=== PATIENT | female | born 1945 | race Caucasian/White ===

== ENCOUNTER → 2021-03-16 11:45 | Outpatient (CLI) | payer MEDICARE, OTHER, SELFPAY ==
[2021-03-16 19:22] LABS: Add Manual Diff / Slide Review NO; Basophils Absolute Auto 0 /uL (0-100); Basophils Percent Auto 0.5 % (0-2); Eosinophils Absolute Auto 100 /uL (0-450); Eosinophils Percent Auto 1.4 % (2-4); Hematocrit 39.4 % (36-46); Hemoglobin 12.9 g/dL (12.0-16.0); Lymphocytes Absolute Auto 1400 /uL (1100-4500); Lymphocytes Percent Auto 20.5 % (25-40); Mean Corpuscular HGB Conc 32.7 % (30-36); Mean Corpuscular Hemoglobin 31.8 PG (26-34); Mean Corpuscular Volume 97.2 fL (80-100); Monocytes Absolute Auto 900 /uL (0-900); Monocytes Percent Auto 13.6 % (3-14); Neutrophils Absolute Auto 4400 /uL (1500-7000); Platelet Count 250 X10^3/uL (150-400); Red Blood Cell Count 4.05 X10^6/uL (4.0-5.2); Red Cell Distribution Width 12.8 % (11.6-14.8); White Blood Cell Count 6.9 X10^3/uL (4.5-11.0)
[2021-03-16 19:42] LABS: Alanine Aminotransferase 26 IU/L (<35); Albumin 4.1 g/dL (3.5-5.0); Albumin Globulin Ratio 1.6 (1.0-2.8); Alkaline Phosphatase 61 U/L (38-126); Aspartate Aminotransferase 39 IU/L (14-36); Bilirubin Total 0.4 mg/dL (0.2-1.3); Blood Urea Nitrogen 21 mg/dL (7-17); Calcium 9.5 mg/dL (8.4-10.2); Carbon Dioxide 34 mmol/L (22-32); Chloride 102 mmol/L (98-107); Estimated Glomerular Filt Rate > 60.0 mL/min (>60); Globulin 2.6 g/dL (1.7-4.1); Glucose 60 mg/dL (80-110); HEMOLYSIS 19 (0-50); Magnesium 2.1 mg/dL (1.6-2.3); Potassium 4.2 mmol/L (3.4-5.1); Sodium 141 mmol/L (137-145); Total Protein 6.7 g/dL (6.3-8.2)
[2021-03-16 20:02] LABS: TSH w/ Reflex to FT4 1.53 uIU/mL (0.47-4.68)
[2021-03-16 20:35] LABS: Folate > 20.0 ng/mL (2.76-20.0); Vitamin B12 727 pg/mL (239-931)
== END ==
PROVIDERS: PCP Obstetrics & Gynecology; Referring Provider Nurse Practitioner Family; Visit Provider Nurse Practitioner Family
DX: K22.4 Dyskinesia of esophagus (principal); K59.00 Constipation, unspecified; K21.9 Gastro-esophageal reflux disease without esophagitis; E53.8 Deficiency of other specified B group vitamins
CPT/HCPCS: 80053; 82248; 82607; 82746; 83735; 84443; 85025

== ENCOUNTER → 2021-12-18 12:19 | Outpatient (CLI) | payer MEDICARE, OTHER, SELFPAY | PROVIDERS: PCP Obstetrics & Gynecology; Visit Provider Physician Assistant Medical | DX: N90.89 Other specified noninflammatory disorders of vulva and perineum (principal) | CPT/HCPCS: 87070; 87205 ==

== ENCOUNTER → 2022-04-12 11:37 | Outpatient (CLI) | payer MEDICARE, OTHER, SELFPAY ==
[2022-04-12 20:00] LABS: Add Manual Diff / Slide Review NO; Basophils Absolute Auto 0 /uL (0-100); Basophils Percent Auto 0.6 % (0-2); Eosinophils Absolute Auto 100 /uL (0-450); Eosinophils Percent Auto 1.3 % (2-4); Hematocrit 41.9 % (36-46); Hemoglobin 13.7 g/dL (12.0-16.0); Lymphocytes Absolute Auto 1300 /uL (1100-4500); Lymphocytes Percent Auto 17.4 % (25-40); Mean Corpuscular HGB Conc 32.7 % (30-36); Mean Corpuscular Hemoglobin 31.5 PG (26-34); Mean Corpuscular Volume 96.4 fL (80-100); Monocytes Absolute Auto 600 /uL (0-900); Monocytes Percent Auto 8.6 % (3-14); Neutrophils Absolute Auto 5400 /uL (1500-7000); Neutrophils Percent Auto 72.1 % (50-75); Platelet Count 270 X10^3/uL (150-400); Red Blood Cell Count 4.34 X10^6/uL (4.0-5.2); Red Cell Distribution Width 12.8 % (11.6-14.8); White Blood Cell Count 7.5 X10^3/uL (4.5-11.0)
[2022-04-12 20:20] LABS: Alanine Aminotransferase 28 IU/L (<35); Albumin 4.3 g/dL (3.5-5.0); Albumin Globulin Ratio 1.4 (1.0-2.8); Alkaline Phosphatase 78 U/L (38-126); Aspartate Aminotransferase 37 IU/L (14-36); BUN Creatinine Ratio 33.3 (6-22); Bilirubin Total 0.5 mg/dL (0.2-1.3); Blood Urea Nitrogen 18 mg/dL (7-17); Calcium 9.3 mg/dL (8.4-10.2); Carbon Dioxide 30 mmol/L (22-32); Chloride 99 mmol/L (98-107); Estimated Glomerular Filt Rate > 60 mL/min (>60); Globulin 3.1 g/dL (1.7-4.1); Glucose 101 mg/dL (80-110); HEMOLYSIS 16 (0-50); Sodium 139 mmol/L (137-145); Total Protein 7.4 g/dL (6.3-8.2)
[2022-04-12 20:44] LABS: TSH w/ Reflex to FT4 2.08 uIU/mL (0.47-4.68)
[2022-04-12 21:07] LABS: Vitamin B12 618 pg/mL (239-931)
== END ==
PROVIDERS: PCP Physician Assistant; Visit Provider Physician Assistant
DX: M25.512 Pain in left shoulder (principal); R06.83 Snoring; G47.19 Other hypersomnia; Z79.899 Other long term (current) drug therapy; G89.29 Other chronic pain
CPT/HCPCS: 80053; 82607; 84443; 85025

== ENCOUNTER → 2022-04-17 11:56 | Outpatient (CLI) | payer MEDICARE, OTHER, SELFPAY ==
--- NOTE | 2022-04-17 11:57 | DI.MRI.S_ITS ---
PROCEDURE: MR SHOULDER LT WO CON INDICATIONS: Left shoulder pain. Abnormal xray. TECHNIQUE: Noncontrast oblique coronal T2 fast spin echo with fat saturation, oblique sagittal T1 spin echo and T2 fast spin echo with fat saturation, axial T1 spin echo and T2 fast spin echo with fat saturation through the shoulder. COMPARISON: [facility] ([facility]), CR, XR SHOULDER LT MIN 2V, 04/03/2022, 15:17. FINDINGS: Image quality: Excellent. Rotator cuff: There is full-thickness rupture of distal supraspinatus at its insertion on humeral head with up to 4.4 cm medial retraction of torn tendon fibers to the level of glenoid. Tendinosis and low-grade articular surface partial-thickness tear involving distal infraspinatus is seen. Low-grade intrasubstance partial-thickness tear is also seen involving distal subscapularis . Sagittal images demonstrate moderate supraspinatus muscle atrophy. Bones and bursae: Moderate acromioclavicular joint and glenohumeral joint osteoarthritic changes are seen. There is a lobulated and heterogeneously T2 hyperintense and T1 hypointense structure within medullary space of proximal humeral shaft/surgical neck and measures up to 3.7 x 3 x 4.2 cm in size. No surrounding marrow edema or adjacent periosteal reaction is seen. No cortical destruction or pathologic fracture. Moderate amount of joint effusion and subacromial subdeltoid bursal fluid is seen, no gross loose bodies. Capsule and soft tissues: There is signal abnormality and contour irregularity involving superior anterior labrum at 12 to 1 o'clock position. Signal abnormality and contour irregularity involving anterior inferior labrum at 5 to 6 o'clock position is also seen. The long head of the biceps tendon demonstrates normal location and morphology. The rotator interval appears normal, without fibrosis. The coracohumeral ligament is normal in thickness. IMPRESSION: 1. Full-thickness rupture of distal supraspinatus with up to 4.4 cm medial retraction of torn tendon fibers to the level of glenoid. Low-grade articular surface partial-thickness tear involving distal infraspinatus. Low-grade intrasubstance partial-thickness tear involving distal subscapularis. Moderate supraspinatus muscle atrophy. 2. Moderate acromioclavicular joint and glenohumeral joint osteoarthritis. 3.7 x 3 x 4.2 cm lobulated and heterogeneously T2 hyperintense and T1 hypointense lesion within medullary space of proximal humerus is concerning for benign process such as enchondroma. Radiographic follow-up is recommended. 3. Moderate amount of joint effusion and subacromial subdeltoid bursal fluid. No gross loose bodies. 4. Finding is concerning for superior anterior labral tear at 12 to 1 o'clock position and anterior-inferior labral tear at 5 to 6 o'clock position. Dictated by: Sumeet Blanco M.D. on 04/17/2022 at 15:42 Approved by: Sumeet Blanco M.D. on 04/17/2022 at 15:51
== END ==
PROVIDERS: PCP Physician Assistant; Referring Provider Physician Assistant; Visit Provider Physician Assistant
DX: M75.122 Complete rotator cuff tear or rupture of left shoulder, not specified as traumatic (principal); M25.512 Pain in left shoulder; M19.012 Primary osteoarthritis, left shoulder; M25.412 Effusion, left shoulder
CPT/HCPCS: 73221

== ENCOUNTER → 2023-08-05 16:30 | Outpatient (CLI) | payer MEDICARE, OTHER, SELFPAY ==
--- NOTE | 2023-08-05 16:32 | DI.ECHO.S_ITS ---
[place] [facility]---------+ [facility] : : [address] : : [place] : : [id number] : : Phone: [phone] Echocardiogram Report + + :Name: PAULINO COFFMAN Study Date: 08/05/2023 Height: 61 in : :[facility] ReadingLocation: Weight: 120 lb : : Gender: Female BSA: 1.5 m2 : :: 1945 Age: 78 yrs BP: 114/70 mmHg: :Reason For Study: PALPITATIONS : :Ordering Physician: MEGAN, : :ANTOINE Performed By: Tom Ashraf : :Referring: ANTOINE GUZMAN : + + Interpretation Summary Normal left ventricle size with ejection fraction 65-70%. The left atrium is severely dilated. The right atrium is moderately dilated. The aortic valve is mildly calcified. Mild to moderate aortic regurgitation. Mild mitral regurgitation. Moderate tricuspid regurgitation. The right ventricular systolic pressure is estimated to be at least 46 mmHg based on an estimated right atrial pressure of 15 mm Hg. Procedure: A two-dimensional transthoracic echocardiogram with color flow and Doppler was performed. The study quality was technically adequate. There is no prior echocardiogram noted for this patient. The patient was in sinus rhythm with heart rates between 51-81 bpm during the exam. Left Ventricle: The left ventricle is normal in size and wall thickness. The ejection fraction is estimated to be 65-70%. There are no focal wall motion abnormalities. Diastolic function could not be accurately assessed due to confounding valvular disease. Right Ventricle: The right ventricle is normal in size and function. Atria: The left atrium is severely dilated. The right atrium is moderately dilated. The interatrial septum grossly appears intact with no obvious evidence for an atrial septal defect. Mitral Valve: The mitral valve is grossly normal. There is no mitral valve stenosis. There is mild mitral regurgitation. There are multiple regurgitant jets present. Aortic Valve: The aortic valve is trileaflet. The aortic valve is mildly calcified. There is no aortic valve stenosis. There is mild to moderate aortic regurgitation. Tricuspid Valve: The tricuspid valve is not well visualized, but is grossly normal. There is no tricuspid stenosis. There is moderate tricuspid regurgitation. The right ventricular systolic pressure is estimated to be at least 46 mmHg based on an estimated right atrial pressure of 15 mm Hg. Pulmonic Valve: The pulmonic valve is not well visualized. There is no pulmonic valvular stenosis. There is no pulmonic valvular regurgitation. Great Vessels: The aortic root is normal size. The dimensions of the ascending aorta are normal. The IVC is dilated (diameter is greater than 2.1 cm) and it collapses less than 50% with a sniff. This suggests a high right atrial pressure of 15 mm Hg. Pericardium/ Pleura There is no pericardial effusion. There is no pleural effusion. MMode/2D Measurements & Calculations LVIDd: 4.6 cm LVOT diam: 2.0 cm LVIDs: 2.7 cm Ao root diam: 3.2 cm FS: 40.7 % asc Aorta Diam: 3.6 cm IVSd: 0.73 cm Ao Arch Diam (Prox Trans): 2.7 cm LVPWd: 0.84 cm LV whiting. diameter/BSA (cm/m^2): 3.0 LV sys. diameter/BSA (cm/m^2): 1.8 LA A2 area: 27.1 cm2 RA long axis: 5.2 cm LA A4 area: 21.6 cm2 RA area: 17.6 cm2 LA length (vol): 5.5 cm RA vol: 50.5 ml LA vol: 90.8 ml RA : 33.2 ml/m2 LA vol index: 59.7 ml/m2 IVC diam: 2.0 cm RVD1 (basal): 3.6 cm RVD2 (mid): 2.4 cm TAPSE: 2.7 cm Doppler Measurements & Calculations Ao V2 max: 163.4 cm/sec LVOT Max Prasanna: 121.1 cm/sec Ao V2 mean: 111.9 cm/sec LV V1 max P.9 mmHg Ao max P.7 mmHg LV V1 VTI: 25.8 cm Ao mean P.7 mmHg QUENTIN(I,D): 2.2 cm2 Ao V2 VTI: 35.4 cm QUENTIN(V,D): 2.2 cm2 sev ratio: 0.73 QUENTIN indexed to BSA (cm^2/m^2): 1.4 AI P1/2t: 629.4 msec AI dec slope: 217.6 cm/sec2 MV E max prasanna: 53.3 cm/sec TR max prasanna: 278.6 cm/sec MV A max prasanna: 72.1 cm/sec TR max P.1 mmHg MV E/A: 0.74 PA V2 max: 80.6 cm/sec Med Peak E' Prasanna: 7.9 cm/sec PA V2 mean: 53.1 cm/sec E/E' med: 6.8 PA mean P.3 mmHg Lat Peak E' Prasanna: 7.9 cm/sec PA pr(Accel): 39.6 mmHg E/E' lat: 6.8 E/e' average: 6.8 MV dec time: 0.25 sec SV(RAYNE): 77.0 ml Electronically signed by: Eve Ventura on Reading Physician:08/05/2023 08:25 PM
== END ==
PROVIDERS: PCP Physician Assistant; Referring Provider Internal Medicine Cardiovascular Disease; Visit Provider Internal Medicine Cardiovascular Disease
DX: I08.3 Combined rheumatic disorders of mitral, aortic and tricuspid valves (principal); R00.2 Palpitations
CPT/HCPCS: 93306

== ENCOUNTER → 2023-08-26 11:06 | Outpatient (CLI) | payer MEDICARE, OTHER, SELFPAY ==
[2023-08-26 19:29] LABS: Add Manual Diff / Slide Review NO; Basophils Absolute Auto 200 /uL (0-100); Basophils Percent Auto 2.5 % (0-2); Eosinophils Absolute Auto 100 /uL (0-450); Eosinophils Percent Auto 1.4 % (2-4); Hematocrit 37.6 % (36-46); Hemoglobin 12.4 g/dL (12.0-16.0); Lymphocytes Absolute Auto 1200 /uL (1100-4500); Lymphocytes Percent Auto 19.4 % (25-40); Mean Corpuscular HGB Conc 32.9 % (30-36); Mean Corpuscular Hemoglobin 31.9 PG (26-34); Mean Corpuscular Volume 96.8 fL (80-100); Monocytes Absolute Auto 600 /uL (0-900); Monocytes Percent Auto 10.7 % (3-14); Neutrophils Absolute Auto 4000 /uL (1500-7000); Platelet Count 248 X10^3/uL (150-400); Red Blood Cell Count 3.89 X10^6/uL (4.0-5.2); Red Cell Distribution Width 13.2 % (11.6-14.8); White Blood Cell Count 6.1 X10^3/uL (4.5-11.0)
[2023-08-26 19:34] LABS: Alanine Aminotransferase 29 IU/L (<35); Alkaline Phosphatase 65 U/L (38-126); Aspartate Aminotransferase 43 IU/L (14-36); BUN Creatinine Ratio 28.6 (6-22); Bilirubin Total 0.6 mg/dL (0.2-1.3); Blood Urea Nitrogen 18 mg/dL (7-17); Carbon Dioxide 28 mmol/L (22-32); Chloride 106 mmol/L (98-107); Cholesterol 202 mg/dL (140-199); Estimated Glomerular Filt Rate > 60 mL/min (>60); Glucose 91 mg/dL (80-110); HDL Cholesterol 76 mg/dL (40-60); LDL Cholesterol Calculated 112 mg/dL (<100); Magnesium 2.1 mg/dL (1.6-2.3); Sodium 141 mmol/L (137-145); Triglycerides 72 mg/dL (35-150)
[2023-08-26 19:37] LABS: Albumin 4.2 g/dL (3.5-5.0); Albumin Globulin Ratio 1.6 (1.0-2.8); Globulin 2.7 g/dL (1.7-4.1); HEMOLYSIS 18 (0-50); Potassium 3.8 mmol/L (3.4-5.1); Total Protein 6.9 g/dL (6.3-8.2)
[2023-08-26 20:04] LABS: TSH w/ Reflex to FT4 1.08 uIU/mL (0.47-4.68)
[2023-08-26 20:26] LABS: Vitamin B12 582 pg/mL (239-931)
== END ==
PROVIDERS: PCP Physician Assistant; Visit Provider Physician Assistant
DX: R00.2 Palpitations (principal); Z13.6 Encounter for screening for cardiovascular disorders; K22.4 Dyskinesia of esophagus; Z79.899 Other long term (current) drug therapy; G47.19 Other hypersomnia
CPT/HCPCS: 80053; 80061; 82607; 83735; 84443; 85025

== ENCOUNTER → 2023-10-03 10:44 | Outpatient (CLI) | payer MEDICARE, OTHER, SELFPAY ==
[2023-10-03 20:15] LABS: HEMOLYSIS < 15 (0-50); Iron 149 ug/dL (37-170)
[2023-10-03 20:18] LABS: Add Manual Diff / Slide Review NO; Basophils Absolute Auto 100 /uL (0-100); Basophils Percent Auto 1.4 % (0-2); Eosinophils Absolute Auto 200 /uL (0-450); Eosinophils Percent Auto 2.5 % (2-4); Hematocrit 38.5 % (36-46); Hemoglobin 12.7 g/dL (12.0-16.0); Lymphocytes Absolute Auto 1300 /uL (1100-4500); Lymphocytes Percent Auto 21.9 % (25-40); Mean Corpuscular HGB Conc 33.1 % (30-36); Mean Corpuscular Hemoglobin 32.1 PG (26-34); Mean Corpuscular Volume 96.9 fL (80-100); Monocytes Absolute Auto 600 /uL (0-900); Monocytes Percent Auto 9.9 % (3-14); Neutrophils Absolute Auto 4000 /uL (1500-7000); Neutrophils Percent Auto 64.3 % (50-75); Platelet Count 243 X10^3/uL (150-400); Red Blood Cell Count 3.97 X10^6/uL (4.0-5.2); Red Cell Distribution Width 13.2 % (11.6-14.8); White Blood Cell Count 6.2 X10^3/uL (4.5-11.0)
[2023-10-03 20:29] LABS: Alanine Aminotransferase 21 IU/L (<35); Albumin 3.8 g/dL (3.5-5.0); Albumin Globulin Ratio 1.4 (1.0-2.8); Alkaline Phosphatase 66 U/L (38-126); Aspartate Aminotransferase 33 IU/L (14-36); BUN Creatinine Ratio 31.3 (6-22); Bilirubin Total 0.6 mg/dL (0.2-1.3); Blood Urea Nitrogen 20 mg/dL (7-17); Carbon Dioxide 30 mmol/L (22-32); Chloride 107 mmol/L (98-107); Estimated Glomerular Filt Rate > 60 mL/min (>60); Globulin 2.8 g/dL (1.7-4.1); Glucose 90 mg/dL (80-110); HEMOLYSIS 19 (0-50); Potassium 3.8 mmol/L (3.4-5.1); Sodium 141 mmol/L (137-145); Total Protein 6.6 g/dL (6.3-8.2)
== END ==
PROVIDERS: PCP Physician Assistant; Referring Provider Physician Assistant; Visit Provider Physician Assistant
DX: D64.9 Anemia, unspecified (principal); R74.8 Abnormal levels of other serum enzymes
CPT/HCPCS: 80053; 83540; 83550; 85025